=== PATIENT | male | born 1990 | race African-American/Black ===

== ENCOUNTER 2017-02-11 00:28 | Emergency (ER) | payer OTHER, SELFPAY ==
[~2017-02-11] VITALS: Ht 188 cm; Wt 90.0 kg
[2017-02-11 02:06] VITALS: BP 130/78
[2017-02-11] MEDS ORDERED: ALBU8HFA IH (17:38)
== END 2017-02-11 02:11 | disposition home or self-care (01) ==
LOC: EMS 00:30
DX: J18.9 Pneumonia, unspecified organism (principal); F17.210 Nicotine dependence, cigarettes, uncomplicated; F12.90 Cannabis use, unspecified, uncomplicated
CPT/HCPCS: 71020; 99284

== ENCOUNTER 2017-02-11 17:19 | Emergency (ER) | payer OTHER ==
[~2017-02-11] VITALS: Ht 190.5 cm; Wt 90.9 kg
[2017-02-11] MEDS ORDERED: ALBU8HFA IH (17:38)
[2017-02-11 19:00] VITALS: BP 130/77
== END 2017-02-11 19:01 | disposition home or self-care (01) ==
LOC: EMS 17:20
DX: R07.89 Other chest pain (principal); J18.9 Pneumonia, unspecified organism
CPT/HCPCS: 99283